=== PATIENT | female | born 1940 | race Caucasian/White ===

== ENCOUNTER → 2019-07-13 | Outpatient (CLI) | payer MEDICARE, OTHER, SELFPAY ==
--- NOTE | 2019-07-13 11:20 | BD_ITS ---
STUDY: DUAL ENERGY X-RAY ABSORPTIOMETRY / DXA REASON FOR EXAM: Female, 79 years old. The patient is postmenopausal. Loss of height. TECHNIQUE: Bone Mineral Density (BMD) measurements of lumbar spine and bilateral hips were obtained. COMPARISON: Comparison is made with prior study April 04, 2015. FINDINGS: Lumbar Spine (L1-L4): g/cm2 (1.246) / T-score (0.6) / Z-score (2.4) Findings are suggestive of normal bone density with a low fracture risk. Left Femur Total: g/cm2 (1.935) / T-score (1.0) / Z-score (3.0) Left Femoral Neck: g/cm2 (0.959) / T-score (-0.6) / Z-score (1.5) Right Femur Total: g/cm2 (1.139) / T-score (1.0) / Z-score (3.0) Right Femoral Neck: g/cm2 (0.956) / T-score (-0.6) / Z-score (1.5) The T-Scores on the most recent prior examination were: Lumbar Spine (L1-L4): There has been worsening of bone density since the previous examination. Left Femur Total: which represents an improvement of 0.6%. Right Femur Total: which represents an improvement of 2.7%. BD/Dexa Bone Density Study IMPRESSION: The patient is considered normal as outlined below according to World Ky Organization (WHO) criteria with a low fracture risk. There has been improvement of bone density since the previous examination. Reference Information: The T-score is the number of standard deviations above or below the standard which is normal for young adults at their peak bone mineral density. The World Health Organization (WHO) interprets the T-scores as follows: Above -1 Normal bone density Between -1 and -2.5 Osteopenia Equal to / or below -2.5 Osteoporosis As a practical clinical guideline, osteopenia may be graded as follows: Mild -1 through -1.5 Moderate -1.6 through -2.0 Severe -2.1 through -2.4 The Z-score is the number of standard deviations above or below age-matched controls. A Z-score of less than -1.5 would be considered abnormal. References: 1. NIH Osteoporosis and Related Bone Diseases http://www.osteo.org 2. International Society for Clinical Densitometry http://www.iscd.org 3. National Osteoporosis Foundation http://www.nof.org Electronically Signed: Clark Roth, at 11:12 EDT , Service support ,
--- NOTE | 2019-07-13 12:35 | BI_ITS ---
MAMMOGRAPHY - BILATERAL SCREENING REASON FOR EXAM: Female, 79 years old. Routine annual screening examination. PERTINENT HISTORY: Prior left lumpectomy. Patient has a history of lupus. TECHNIQUE: Digital bilateral breast hollis (3D mammographic acquisition) in the CC and MLO projections. 2-D mediolateral oblique (MLO) and craniocaudad (CC) views of both breasts were obtained. CAD: Full Field Digital Mammography with Computer Added Detection was performed. COMPARISON: Comparison is made with prior osseous examination and September 16, 2017. FINDINGS: Breast Composition: There are scattered areas of fibroglandular density. There now is evidence of a focal area of the architectural distortion in the deep upper central portion of the left breast. This measures 2.2 cm x 2.4 cm. A biopsy recommended. Surgical clips are seen in the superior medial retroareolar region of the left breast in keeping with the history of prior lumpectomy. This is unchanged. No other significant abnormalities are identified. BI/SCREEN MAMM (CAD) W/HOLLIS BILAT IMPRESSION: New area of architectural distortion in the deep upper central portion of the left breast as described. A biopsy is recommended. ASSESSMENT CATEGORY: BIRADS Category 4: Suspicious - Biopsy Should Be Considered. A letter regarding these results will be sent to the patient by the facility within 30 days. Approximately 10% of breast cancers are not detected by mammography. A normal mammogram should not delay biopsy of a clinically suspicious abnormality. [id number] Electronically Signed: Clark Roth, at 9:21 EDT , Service support ,
== END | disposition home or self-care (01) ==
DX: M81.0 Age-related osteoporosis without current pathological fracture (principal); Z12.31 Encounter for screening mammogram for malignant neoplasm of breast
CPT/HCPCS: 77063; 77067; 77080